=== PATIENT | male | born 1985 | race Caucasian/White ===

== ENCOUNTER 2018-06-24 08:11 | Emergency (ER) | payer SELFPAY ==
[~2018-06-24] VITALS: Ht 177.8 cm; Wt 86.2 kg
[~2018-06-24 08:11] MED LIST: Bactroban22 GM TOP; CEPH500 PO; CYCL10 PO; HYDACE5 PO; OXYACE5T PO; PROM25 PO; RXPROM25 PO
[2018-06-24] MEDS ORDERED: IBUP800 PO (08:53)
== END 2018-06-24 09:32 | disposition home or self-care (01) ==
LOC: ER 08:11
DX: S67.42XA Crushing injury of left wrist and hand, initial encounter (principal); F17.220 Nicotine dependence, chewing tobacco, uncomplicated; W22.8XXA Striking against or struck by other objects, initial encounter
CPT/HCPCS: 73110; 73130; 29125; 99283; L3917